=== PATIENT | male | born 1945 | race Caucasian/White ===

== ENCOUNTER 2018-03-11 12:39 | Outpatient (REF) | payer MEDICARE, OTHER, SELFPAY ==
[2018-03-11 20:06] LABS: ESR 22 MM/HR (1-20)
[2018-03-13 12:29] LABS: CRP, High Sensitivity >15.00 mg/L
== END 2018-03-11 12:40 ==
LOC: NCHCN 12:39
PROVIDERS: PCP Internal Medicine; Visit Provider Internal Medicine
DX: M54.12 Radiculopathy, cervical region (principal); M54.41 Lumbago with sciatica, right side; M31.6 Other giant cell arteritis; N32.81 Overactive bladder; K21.9 Gastro-esophageal reflux disease without esophagitis; R73.09 Other abnormal glucose; R00.2 Palpitations
CPT/HCPCS: 85652; 86141

== ENCOUNTER → 2018-12-15 12:45 | Outpatient (BNVA) | payer MEDICARE, OTHER, SELFPAY | PROVIDERS: PCP Internal Medicine; Visit Provider Nurse Practitioner Gerontology | DX: N40.1 Benign prostatic hyperplasia with lower urinary tract symptoms (principal); R35.0 Frequency of micturition | CPT/HCPCS: 51798; 99213 ==

== ENCOUNTER 2019-04-25 14:19 | Outpatient (REF) | payer MEDICARE, OTHER, SELFPAY ==
--- NOTE | 2019-04-25 13:19 | SKI_PTH ---
PATIENT: Von Zimmer LOC: [facility] U#:[id number] AGE/SX: 73/M ROOM: RE04/25/[address]: Jose Ochoa DO : 1945 BED: DIS: 04/25/2019 SPEC #: [id number] RECD: 04/25/19 18:23 STATUS: TODD REQ #: [id number] MARCELO: 04/25/19 13:[address]: Jose Ochoa DEPT: Surgical Specimen RECD BY: Khadra Lim ENTERED: 04/25/19 18:24 SP TYPE: SKI OT DR: Dylan Padron Tissues: 1 - SKIN BIOPSY(SHAVE/PUNCH) 2 - SKIN BIOPSY(SHAVE/PUNCH) Procedures: SKIN LEVEL 4 Comments: [id number]
== END 2019-04-25 14:39 ==
LOC: LBN 14:19
PROVIDERS: PCP Internal Medicine; Visit Provider Otolaryngology Otolaryngology/Facial Plastic Surgery
DX: D22.5 Melanocytic nevi of trunk (principal)
CPT/HCPCS: 88305

== ENCOUNTER 2019-05-16 13:15 | Outpatient (REF) | payer MEDICARE, OTHER, SELFPAY ==
--- NOTE | 2019-05-16 13:07 | SKI_PTH ---
PATIENT: Von Zimmer LOC: [facility] U#:[id number] AGE/SX: 73/M ROOM: RE05/16/[address]: Jose Ochoa DO : 1945 BED: DIS: 05/16/2019 SPEC #: [id number] RECD: 05/17/19 12:43 STATUS: TODD REQ #: [id number] MARCELO: 05/16/19 13:[address]: Jose Ochoa DEPT: Surgical Specimen RECD BY: Khadra Lim ENTERED: 05/17/19 12:44 SP TYPE: SAM ADDISON DR: Dylan Padron Tissues: 1 - SKIN BIOPSY(SHAVE/PUNCH) 2 - SKIN BIOPSY(SHAVE/PUNCH) Procedures: SKIN LEVEL 4 Comments: [id number]
== END 2019-05-16 13:35 ==
LOC: LBN 13:15
PROVIDERS: PCP Internal Medicine; Visit Provider Otolaryngology Otolaryngology/Facial Plastic Surgery
DX: L82.1 Other seborrheic keratosis (principal); D22.61 Melanocytic nevi of right upper limb, including shoulder
CPT/HCPCS: 88305

== ENCOUNTER 2019-09-20 11:48 | Outpatient (REF) | payer MEDICARE, OTHER, SELFPAY ==
[2019-09-20 21:03] LABS: Abs Immature Grans 0.02 k/cumm (0.0-0.09); Absolute Basophil Count 0.01 k/cumm (0.0-0.2); Absolute Eosinophil Count 0.06 k/cumm (0.0-0.7); Absolute Lymphocyte Count 1.39 k/cumm (1.2-3.4); Absolute Monocyte Count 0.52 k/cumm (0.11-0.7); Absolute Neutrophil Count 4.05 k/cumm (1.2-6.7); Basophils % 0.2; HCT 42.4 % (40.0-50.0); HGB 14.4 g/dL (13.5-17.5); Immature Grans % 0.3 %; Mean Corpuscular Volume 94.2 fL (80-95); Mean Platelet Volume 11.3 fL (8.0-11.0); Monocytes % 8.6; Neutrophils % 66.9; Platelet Count 188 x1000/uL (130-400); White Blood Cell Count 6.05 k/cumm (4.4-10.8)
[2019-09-20 21:10] LABS: ALT 22 U/L (16-63); AST 17 U/L (15-37); Albumin 3.9 g/dL (3.4-5.0); Alkaline Phosphatase 71 U/L (46-116); Anion Gap 8.7 mmol/L (3-11); BUN 16 mg/dL (7-18); Bilirubin, Total 0.4 mg/dL (0.2-1.0); CO2 27.3 mmol/L (21.0-32.0); CREATININE 0.92 mg/dL (0.70-1.30); Calcium 8.8 mg/dL (8.5-10.1); Chloride 107 mmol/L (98-107); Glucose 80 mg/dL (74-106); Potassium 4.3 mmol/L (3.5-5.1); Sodium 143 mmol/L (136-145); Total Protein 6.9 g/dL (6.4-8.2)
[2019-09-20 21:31] LABS: ESR 7 mm/hr (1-20)
== END 2019-09-20 12:08 ==
LOC: NCHCN 11:48
PROVIDERS: PCP Internal Medicine; Visit Provider Physician Assistant
DX: M31.6 Other giant cell arteritis (principal)
CPT/HCPCS: 80053; 85652; 85025; 86140

== ENCOUNTER 2020-04-26 11:49 | Outpatient (CLI) | payer MEDICARE, OTHER, SELFPAY ==
[2020-04-26 12:40] VITALS: BP 140/65; PULSE 54; RESP 16; TEMP 37; O2SAT 100
[2020-04-26] MEDS: Omnipaque 240 MG/ML 50 ML BTL IJ (13:31)
[2020-04-26] MEDS: methylPREDNISolone ACETATE 80 MG/ML VIAL IJ (13:31)
[2020-04-26 13:32] VITALS: BP 136/67; PULSE 56; RESP 17; O2SAT 99
--- NOTE | 2020-04-26 13:33 | DI.RAD_ITS ---
EXAM: XR PAIN CLINIC LUMBAR SP 2V CLINICAL HISTORY: Dx: Lumbar Radiculopathy TECHNIQUE: 2D and realtime digital imaging was performed. CONTRAST MATERIAL: Refer to procedure report. COMPARISON: No exams were available for comparison FINDINGS: Fluoroscopy was provided for Dr. Jeter during the performance of a lumbar epidural steroid injection. Please refer to the procedure report for complete details. Fluoro time: 18.6 seconds IMPRESSION:
--- NOTE | 2020-04-26 13:37 | PDOC.PAIN ---
Pain Clinic Procedure Note Procedure Note Procedure Note: Lumbar Epidural Steroid Injection Procedure Note COMMENTS: I did review Ms. Pop's note and the patient's most recent lumbar MRI. DX: Lumbosacral radiculopathy HEATHER MCKEON has been referred to the [facility] for lumbar epidural steroid injection. The patient was greeted by the nurse who verified patients name and . Patient was then taken to the fluoroscopy suite. The patient was interviewed and the medial record reviewed. There were no medical, pharmacologic, radiographic, or other structural contraindications to attempting fluoroscopically guided lumbar epidural steroid injection. Risks and expected side effects as well as potential benefits of the procedure were reviewed and voiced concerns expressed. The patient consent form was signed and witnessed. Standard patient time-out procedure was performed. The patient was placed in the prone position on the fluoroscopy table and automated blood pressure cuff and pulse oximeter applied. The skin entry point for entering/approaching the epidural space at L5-S1 and marked. Following thorough chlorhexadine preparation of the skin and draping and 1% lidocaine infiltration of the skin entry point and subcutaneous tissues, a 18 gauge Touhy needle was placed under fluoroscopic guidance and with loss of resistance technique into the epidural space. Needle tip placement and depth were aided and confirmed by fluoroscopy. There was no paresthesia or return of blood or CSF through the needle. 1 cc's of Omnipaque 240 was injected with clear epidural spread confirmed with fluoroscopy. 80mg depomedrol was injected. There was not any unusual discomfort expressed by HEATHER MCKEON. Patient's vital signs were stable throughout the procedure and were as recorded in nursing records. Follow up plans and appointments were discussed with patient. Post procedure instruction was given as documented in nursing records and having met discharge criteria and was discharged from the [facility]. COMMENTS: If this procedure is helpful, it can be completed up to 3 times per 12 months. Rush Jeter DO, MPH Pain Management
== END 2020-04-26 12:09 ==
PROVIDERS: PCP Internal Medicine; Visit Provider Preventive Medicine Occupational Medicine
DX: M54.17 Radiculopathy, lumbosacral region (principal)
CPT/HCPCS: 62323; 72100; J1040; Q9967

== ENCOUNTER 2020-07-24 10:52 | Outpatient (CLI) | payer MEDICARE, OTHER, SELFPAY ==
[2020-07-24 11:03] VITALS: BP 137/63; PULSE 57; RESP 16; TEMP 37; O2SAT 96
[2020-07-24 11:30] VITALS: BP 138/68; PULSE 58; RESP 19; O2SAT 99
--- NOTE | 2020-07-24 11:31 | DI.RAD_ITS ---
EXAM: XR PAIN CLINIC LUMBAR SP 2V CLINICAL HISTORY: DX: Lumbar Radiculopathy. TECHNIQUE: Fluoroscopy was provided for the referring physician for guidance with performing injecti on procedure. COMPARISON: No exams were available for comparison FINDINGS: Please see procedure note for details. Fluoro time: 16.8 sec, 7.37 mGy RADIATION DOSE DELIVERED:
[2020-07-24] MEDS: methylPREDNISolone ACETATE 40 MG/ML VIAL IJ (11:36)
[2020-07-24] MEDS: Omnipaque 240 MG/ML 50 ML BTL IJ (11:37)
--- NOTE | 2020-07-24 12:18 | PDOC.PAIN ---
Pain Clinic Procedure Note Procedure Note Procedure Note: Date of service: July 24, 2020 Lumbar Epidural Steroid Injection #2 Procedure Note COMMENTS: His first LESI was on 04/26/20 and he did very well with this procedure. DX: Lumbosacral radiculopathy HEATHER MCKEON has been referred to the [facility] for lumbar epidural steroid injection. The patient was greeted by the nurse who verified patients name and . Patient was then taken to the fluoroscopy suite. The patient was interviewed and the medial record reviewed. There were no medical, pharmacologic, radiographic, or other structural contraindications to attempting fluoroscopically guided lumbar epidural steroid injection. Risks and expected side effects as well as potential benefits of the procedure were reviewed and voiced concerns expressed. The patient consent form was signed and witnessed. Standard patient time-out procedure was performed. The patient was placed in the prone position on the fluoroscopy table and automated blood pressure cuff and pulse oximeter applied. The skin entry point for entering/approaching the epidural space at L5-S1 and marked. Following thorough chlorhexadine preparation of the skin and draping and 1% lidocaine infiltration of the skin entry point and subcutaneous tissues, a 18 gauge Touhy needle was placed under fluoroscopic guidance and with loss of resistance technique into the epidural space. Needle tip placement and depth were aided and confirmed by fluoroscopy. There was no paresthesia or return of blood or CSF through the needle. 1 cc's of Omnipaque 240 was injected with clear epidural spread confirmed with fluoroscopy. 80mg depomedrol was injected. There was not any unusual discomfort expressed by HEATHER MCKEON. Patient's vital signs were stable throughout the procedure and were as recorded in nursing records. Follow up plans and appointments were discussed with patient. Post procedure instruction was given as documented in nursing records and having met discharge criteria and was discharged from the [facility]. COMMENTS: If this procedure is helpful, it can be completed up to 3 times per 12 months. Rush Jeter DO, MPH Pain Management
== END 2020-07-24 11:12 ==
PROVIDERS: PCP Internal Medicine; Visit Provider Preventive Medicine Occupational Medicine
DX: M54.17 Radiculopathy, lumbosacral region (principal)
CPT/HCPCS: 62323; 72100; J1030; Q9967

== ENCOUNTER 2020-11-21 10:30 | Outpatient (REF) | payer MEDICARE, OTHER, SELFPAY ==
[2020-11-21 16:34] LABS: ALT 28 U/L (16-63); Anion Gap 9.3 mmol/L (3-11); BUN 17 mg/dL (7-18); CO2 28.7 mmol/L (21.0-32.0); Calcium 8.9 mg/dL (8.5-10.1); Chloride 106 mmol/L (98-107); Creatine Kinase 73 U/L (39-308); Glucose 93 mg/dL (74-106); Potassium 4.2 mmol/L (3.5-5.1); Sodium 144 mmol/L (136-145)
== END 2020-11-21 10:31 | disposition home or self-care (01) ==
LOC: NCHCN 10:30
PROVIDERS: PCP Internal Medicine; Visit Provider Internal Medicine
DX: E78.5 Hyperlipidemia, unspecified (principal)
CPT/HCPCS: 80048; 82550; 84460

== ENCOUNTER 2022-06-30 18:56 | Outpatient (REF) | payer MEDICARE, OTHER, SELFPAY ==
[2022-06-30 19:57] LABS: TSH 2.04 uIU/mL (0.36-3.74)
== END 2022-06-30 18:57 | disposition home or self-care (01) ==
LOC: NCHCN 18:56
PROVIDERS: PCP Internal Medicine; Visit Provider Internal Medicine
DX: E03.9 Hypothyroidism, unspecified (principal)
CPT/HCPCS: 84443